=== PATIENT | male | born 1955 | race Caucasian/White ===

== ENCOUNTER 2016-10-02 22:50 | Emergency (ER) | payer OTHER ==
[~2016-10-02] VITALS: Ht 182.9 cm; Wt 94.3 kg
[2016-10-02] MEDS ORDERED: AMITRIPTYLINE H10 M3 PO (23:42)
[2016-10-02] MEDS ORDERED: OMEPRAZOLE10 MG PO (23:43)
[2016-10-02] MEDS ORDERED: PROPRANOLOL 1010 MG PO (23:43)
[2016-10-03 01:28] VITALS: BP 140/90
== END 2016-10-03 01:30 | disposition home or self-care (01) ==
LOC: ER 22:50
DX: S86.811A Strain of other muscle(s) and tendon(s) at lower leg level, right leg, initial encounter (principal); E78.5 Hyperlipidemia, unspecified; F17.210 Nicotine dependence, cigarettes, uncomplicated; Z88.0 Allergy status to penicillin; Z88.2 Allergy status to sulfonamides; X50.0XXA Overexertion from strenuous movement or load, initial encounter; Y93.89 Activity, other specified; Y92.89 Other specified places as the place of occurrence of the external cause; Y99.8 Other external cause status